=== PATIENT | female | born 1990 | race African-American/Black ===

== ENCOUNTER 2020-07-24 09:17 | Emergency (ER) | payer MEDICAID, OTHER ==
[~2020-07-24] VITALS: Ht 182.9 cm; Wt 91.0 kg
[2020-07-24] MEDS ORDERED: ZOLOFT (09:27)
[2020-07-24] MEDS ORDERED: ABILIFY (09:27)
[2020-07-24] MEDS ORDERED: HALDOL (09:27)
[2020-07-24 09:28] VITALS: BP 150/105
== END 2020-07-24 09:51 | disposition home or self-care (01) ==
LOC: ER 09:31
DX: Z02.2 Encounter for examination for admission to residential institution (principal); I10 Essential (primary) hypertension; F25.0 Schizoaffective disorder, bipolar type
CPT/HCPCS: 99283

== ENCOUNTER 2024-07-25 20:53 | Emergency (ER) | payer MEDICAID ==
[~2024-07-25] VITALS: Ht 185.4 cm; Wt 118.0 kg
[~2024-07-25 20:53] MED LIST: ABILIFY; HALDOL; ZOLOFT
[2024-07-25] MEDS: HALOPERIDOL LACTATE 5MG/ML VIAL IM STA (22:44)
[2024-07-25] MEDS: OLANZAPINE 10 MG/VIAL IM STA (22:44)
[2024-07-25 23:37] VITALS: O2SAT 100
[2024-07-25 23:42] LABS: BASOPHILS % 0.3 % (0.0-2.0); HEMATOCRIT. 40.9 % (42.0-52.0); HEMOGLOBIN. 13.7 g/dL (14.0-18.0); LYMPHOCYTES % 18.7 % (20.0-50.0); MEAN CORPUSCULAR HEMOGLOBIN 29.6 pg (28.0-32.0); MEAN CORPUSCULAR HGB CONC 33.5 g/dL (31.0-37.0); MEAN CORPUSCULAR VOLUME 88.3 fL (80.0-94.0); MEAN PLATELET VOLUME 9.4 fl (7.4-10.4); MONOCYTES % 8.4 % (2.0-8.0); NEUTROPHILS % 72.6 % (40.0-76.0); PLATELET 203 x1000/uL (130-400); RED BLOOD CELL COUNT 4.63 mill/uL (4.7-6.1); WHITE BLOOD COUNT 11.6 x1000/uL (4.5-11.0)
[2024-07-25 23:55] LABS: CHLORIDE 110 mEq/L (98-107); POTASSIUM 3.6 mEq/L (3.5-5.1); SODIUM 146 mEq/L (136-145)
[2024-07-25 23:56] LABS: CALCIUM 9.8 mg/dL (8.7-10.4); CARBON DIOXIDE 25 mEq/L (21-32)
[2024-07-26 00:01] LABS: CREATININE 1.3 mg/dL (0.6-1.3); GLUCOSE 119 mg/dL (70-105); UREA NITROGEN BLOOD 20 mg/dL (9-23)
[2024-07-26 00:02] LABS: ETHANOL BLOOD < 10 mg/dL (<10)
[2024-07-26 00:03] LABS: ACETAMINOPHEN < 2 ug/mL (10-30)
[2024-07-26 01:15] LABS: CLARITY URINE CLOUDY (CLEAR); COLOR URINE DARK YELLOW (YELLOW); GLUCOSE URINE NEGATIVE (NEGATIVE); KETONES URINE TRACE (NEGATIVE); LEUKOCYTE ESTERASE URINE NEGATIVE (NEGATIVE); NITRITE URINE NEGATIVE (NEGATIVE); OCCULT BLOOD URINE NEGATIVE (NEGATIVE); PROTEIN URINE 1+ (NEGATIVE); SPECIFIC GRAVITY URINE 1.036 (1.005-1.030)
[2024-07-26 01:27] LABS: *AMPHETAMINES SCREEN URINE PRESUMPTIVE POSITIVE (NEGATIVE); *BARBITURATES SCREEN URINE NEGATIVE (NEGATIVE); *BENZODIAZEPINES SCREEN URINE NEGATIVE (NEGATIVE); *COCAINE SCREEN URINE NEGATIVE (NEGATIVE); CANNABINOID URINE SCREEN PRESUMPTIVE POSITIVE (NEGATIVE); METHADONE URINE SCREEN NEGATIVE (NEGATIVE); OPIATES URINE SCREEN NEGATIVE (NEGATIVE); PHENCYCLIDINE URINE SCREEN NEGATIVE (NEGATIVE)
[2024-07-26 01:28] LABS: ECSTASY MDMA SCREEN URINE CONF.TEST INDICATED (NEGATIVE)
[2024-07-26 02:19] LABS: RBC URINE 0-2 /hpf (0-2); SQUAMOUS EPITHELIAL CELL URINE NONE SEEN /lpf (RARE/1+); WBC URINE 0-2 /hpf (0-2)
[2024-07-26 02:20] LABS: AMORPHOUS SEDIMENT URINE 2+ /lpf; BACTERIA URINE NONE SEEN
[2024-07-26 09:22] VITALS: BP 128/75; PULSE 87; RESP 14; TEMP 36.7; O2SAT 9
== END 2024-07-26 09:24 | disposition home or self-care (01) ==
LOC: ER 20:53 → EDSEX 20:53 → ER 07-26 09:24
DX: T43.621A Poisoning by amphetamines, accidental (unintentional), initial encounter (principal); F23 Brief psychotic disorder; R45.1 Restlessness and agitation; R41.82 Altered mental status, unspecified; F31.9 Bipolar disorder, unspecified; I10 Essential (primary) hypertension; Z88.0 Allergy status to penicillin; Z88.2 Allergy status to sulfonamides; Z79.899 Other long term (current) drug therapy; Y92.89 Other specified places as the place of occurrence of the external cause
CPT/HCPCS: 80048; 80307; 80329; 80320; 85025; 36415; 96372; 99285; 80305; 81003; J3490; J1630; Z7610 ×4; 99291; G0480

== ENCOUNTER 2024-08-16 14:17 | Emergency (ER) | payer MEDICAID ==
[~2024-08-16] VITALS: Ht 170.2 cm; Wt 79.0 kg
[2024-08-16] MEDS: HALOPERIDOL LACTATE 5MG/ML VIAL IM STA (14:56)
[2024-08-16] MEDS: DIPHENHYDRAMINE 50MG/ML VIAL IM STA (14:56)
[2024-08-16] MEDS: LORAZEPAM 2MG/ML UD SYRINGE IM NR (14:57)
[2024-08-16 15:12] LABS: BASOPHILS % 0.2 % (0.0-2.0); EOSINOPHILS % 0.8 % (0.0-5.0); HEMATOCRIT. 35.7 % (42.0-52.0); HEMOGLOBIN. 11.9 g/dL (14.0-18.0); LYMPHOCYTES % 27.3 % (20.0-50.0); MEAN PLATELET VOLUME 8.9 fl (7.4-10.4); MONOCYTES % 7.6 % (2.0-8.0); NEUTROPHILS % 64.1 % (40.0-76.0); PLATELET 191 x1000/uL (130-400); RED BLOOD CELL COUNT 4.04 mill/uL (4.7-6.1); RED CELL DISTRIBUTION WIDTH 13.7 % (11.6-14.6)
[2024-08-16 15:28] LABS: CREATININE 1.3 mg/dL (0.6-1.3)
[2024-08-16 15:29] LABS: ETHANOL BLOOD < 10 mg/dL (<10); UREA NITROGEN BLOOD 20 mg/dL (9-23)
[2024-08-16 15:30] LABS: ASPARTATE AMINOTRANSFERASE 41 IU/L (<34)
[2024-08-16 15:31] LABS: BILIRUBIN DIRECT 0.4 mg/dL (<=3.0); BILIRUBIN TOTAL 0.9 mg/dL (0.1-1.0); PROTEIN TOTAL 6.1 g/dL (6.0-8.3)
[2024-08-16] MEDS ORDERED: POTASSIUM CHLORIDE 20MEQ TABLET SR PO ONE (16:00)
[2024-08-16] MEDS: MIDAZOLAM HCL 2 MG/2 ML VIAL IV ONE (18:47)
[2024-08-16] MEDS: LIDOCAINE HCL 1% 20ML VIAL INFIL ONE (19:00)
[2024-08-16] MEDS: TETANUS, DIPHTHERIA, PERTUSSIS VAC/PF 0.5ML (>10YR OLD) IM ONE (20:32)
[2024-08-16] MEDS: CLINDAMYCIN 600 MG in DEXTROSE 5% WATER 50 ML IV ONE (20:45)
[2024-08-17] MEDS: IOHEXOL-350 100 ML BOTTLE ONE (03:08)
[2024-08-17] MEDS: POTASSIUM CHLORIDE 20MEQ TABLET SR PO NR (03:21)
[2024-08-17 03:34] LABS: CLARITY URINE CLEAR (CLEAR); COLOR URINE YELLOW (YELLOW); GLUCOSE URINE NEGATIVE (NEGATIVE); KETONES URINE TRACE (NEGATIVE); LEUKOCYTE ESTERASE URINE NEGATIVE (NEGATIVE); NITRITE URINE NEGATIVE (NEGATIVE); OCCULT BLOOD URINE NEGATIVE (NEGATIVE); PH URINE 6.5 (4.5-8.0); PROTEIN URINE NEGATIVE (NEGATIVE); SPECIFIC GRAVITY URINE 1.006 (1.005-1.030); UROBILINOGEN URINE 1.0 E.U./dL (0.2-1.0)
[2024-08-17 03:39] LABS: *AMPHETAMINES SCREEN URINE PRESUMPTIVE POSITIVE (NEGATIVE); *BARBITURATES SCREEN URINE NEGATIVE (NEGATIVE); *BENZODIAZEPINES SCREEN URINE PRESUMPTIVE POSITIVE (NEGATIVE); *COCAINE SCREEN URINE NEGATIVE (NEGATIVE); CANNABINOID URINE SCREEN NEGATIVE (NEGATIVE); ECSTASY MDMA SCREEN URINE NEGATIVE (NEGATIVE); METHADONE URINE SCREEN NEGATIVE (NEGATIVE); OPIATES URINE SCREEN NEGATIVE (NEGATIVE); PHENCYCLIDINE URINE SCREEN NEGATIVE (NEGATIVE)
[2024-08-17] MEDS: HALOPERIDOL LACTATE 5MG/ML VIAL IM ONE (08:33)
[2024-08-17 08:34] VITALS: O2SAT 100
[2024-08-17] MEDS: MIDAZOLAM HCL 2 MG/2 ML VIAL IM ONE (08:34)
[2024-08-17 13:57] VITALS: BP 122/70; PULSE 88; RESP 18; TEMP 36.7; O2SAT 97
[2024-08-17] MEDS ORDERED: OLANZAPINE 5MG TABLET ODT PO SCH (21:00)
[2024-08-17] MEDS ORDERED: TRAZODONE HCL 50MG TABLET PO SCH (21:00)
== END 2024-08-17 14:36 ==
LOC: ER 14:17
DX: I10 Essential (primary) hypertension (principal); F31.9 Bipolar disorder, unspecified; F20.9 Schizophrenia, unspecified; Z79.899 Other long term (current) drug therapy; Z98.890 Other specified postprocedural states; Z20.822 Contact with and (suspected) exposure to COVID-19; Z88.2 Allergy status to sulfonamides; Z88.0 Allergy status to penicillin; S31.821A Laceration without foreign body of left buttock, initial encounter; X58.XXXA Exposure to other specified factors, initial encounter; Y93.89 Activity, other specified; Y92.89 Other specified places as the place of occurrence of the external cause; Y99.8 Other external cause status
CPT/HCPCS: 80076; 80048; 80307; 80329; 80320; 85025; 36415; 72191; 90715; 90471; 96365; 96372 ×2; 96375; 99291; 87426; 80305; 81003; Q9967; J3490; J1200; J1630 ×2; J2003; J2060; J2250 ×2; J7060; Z7610 ×4; A4606; G0480